=== PATIENT | male | born 1995 | race Caucasian/White ===

== ENCOUNTER 2017-05-30 11:36 | Emergency (ER) | payer SELFPAY ==
[~2017-05-30] VITALS: Ht 175.3 cm; Wt 59.0 kg
[~2017-05-30 11:36] MED LIST: ALBU18HF INH; FLUO10CA13 PO; FLUT1DIS3 INH; LEVO500T47 PO; PRED10TA14 PO; VARE1TAB20 PO
[2017-05-30 11:40] VITALS: BP 102/68
== END 2017-05-30 13:22 | disposition home or self-care (01) ==
LOC: ED 13:16
DX: L50.1 Idiopathic urticaria (principal); J45.909 Unspecified asthma, uncomplicated
CPT/HCPCS: 99282

== ENCOUNTER 2017-06-06 23:50 | Emergency (ER) | payer MEDICAID, OTHER ==
[~2017-06-06] VITALS: Ht 175.3 cm; Wt 60.3 kg
[2017-06-06 23:58] VITALS: BP 123/77
[2017-06-07] MEDS ORDERED: PROPARACAINE OPHTH 0.5%, 15ML ONE (00:23)
[2017-06-07] MEDS ORDERED: FLUORESCEIN OPHTHALMIC 1 MG STRIP ONE (00:23)
[2017-06-07] MEDS ORDERED: FLUORESCEIN OPHTHALMIC 1 MG STRIP EACHEYE ONE (00:30)
[2017-06-07] MEDS ORDERED: PROPARACAINE OPHTH 0.5%, 15ML EACHEYE ONE (00:30)
== END 2017-06-07 00:43 | disposition home or self-care (01) ==
LOC: ED 06-07 00:01
DX: H10.022 Other mucopurulent conjunctivitis, left eye (principal)
CPT/HCPCS: 99283